=== PATIENT | female | born 1940 | race Caucasian/White ===

== ENCOUNTER 2019-07-07 21:09 | Emergency (ER) | payer OTHER ==
[~2019-07-07] VITALS: Ht 162.6 cm; Wt 61.7 kg
[2019-07-07 21:21] VITALS: Ht 162.6 cm; Wt 61.7 kg
[2019-07-08 00:22] VITALS: BP 176/84
== END 2019-07-08 00:22 | disposition home or self-care (01) ==
LOC: ED 21:09
DX: L03.116 Cellulitis of left lower limb (principal); J44.9 Chronic obstructive pulmonary disease, unspecified; I10 Essential (primary) hypertension; Z88.0 Allergy status to penicillin; Z88.1 Allergy status to other antibiotic agents
CPT/HCPCS: Q0092